=== PATIENT | male | born 2000 | race Two or more races ===

== ENCOUNTER 2022-03-14 07:28 | Outpatient (REF) | payer OTHER, SELFPAY ==
--- NOTE | ~2022-03-14 | MR_ITS ---
EXAMINATION: MR KNEE WITHOUT CONTRAST, LEFT CLINICAL INFORMATION: Left knee pain and swelling. Limited range of motion. Soccer injury. COMPARISON: None TECHNIQUE: MRI of the knee without contrast was performed using routine sequences on a high-field scanner. FINDINGS: MENISCI: Medial Meniscus: Intact Lateral Meniscus: Intact LIGAMENTS: Cruciate: Complete, full-thickness anterior cruciate ligament tear with diffuse thickening and edema throughout the torn ligament fibers. Distal displacement of the anterior ligament fibers. Intact posterior cruciate ligament. Collateral: Intact EXTENSOR MECHANISM: Intact ARTICULAR CARTILAGE/BONE: Patellofemoral Compartment: Normal Medial Compartment: Intact articular cartilage. Marrow edema at the medial aspect of the medial femoral condyle as well as at the posteromedial tibial plateau consistent with osseous contusions. Lateral Compartment: Marrow edema at the sulcus terminalis and posterior lateral tibial plateau consistent with osseous contusions. Intact articular cartilage. JOINT FLUID AND BURSAE: [id number] joint effusion and trace Frazier's cyst. MR/MR knee LT wo con IMPRESSION: 1. Complete, full-thickness tear of the anterior cruciate ligament. 2. Osseous contusions at the medial femoral condyle, posteromedial and lateral tibial plateau as well as at the sulcus terminalis. 3. [id number] joint effusion and trace Frazier's cyst.
== END 2022-03-14 07:29 | disposition home or self-care (01) ==
LOC: HO.MRI 07:28
PROVIDERS: Visit Provider Family Medicine
DX: S89.92XA Unspecified injury of left lower leg, initial encounter (principal); M25.462 Effusion, left knee; M25.562 Pain in left knee; X58.XXXA Exposure to other specified factors, initial encounter; Y93.9 Activity, unspecified; Y92.9 Unspecified place or not applicable; Y99.9 Unspecified external cause status
CPT/HCPCS: 73721